=== PATIENT | female | born 1965 | race Caucasian/White ===

== ENCOUNTER → 2020-01-22 13:56 | Outpatient (BNVA) | payer BC, SELFPAY | PROVIDERS: Visit Provider Advanced Practice Midwife | DX: Z76.89 Persons encountering health services in other specified circumstances (principal) ==

== ENCOUNTER 2022-03-13 10:06 | Outpatient (REF) | payer OTHER, SELFPAY ==
[2022-03-13 14:14] LABS: CT PCR NOT DETECTED (Not Detect.); NG PCR NOT DETECTED (Not Detect.)
[2022-03-14 11:23] LABS: BV Int Neg Control Negative (Negative); BV Int Pos Control Positive (Positive)
[2022-03-17 16:30] LABS: HPV mRNA E6/E7 rflx Not Detected (Not Detected)
== END 2022-03-13 10:07 | disposition home or self-care (01) ==
LOC: HO.LNP 10:06
PROVIDERS: Visit Provider Advanced Practice Midwife
DX: Z01.419 Encounter for gynecological examination (general) (routine) without abnormal findings (principal); Z11.3 Encounter for screening for infections with a predominantly sexual mode of transmission
CPT/HCPCS: 0353U; 87480; 87510; 87624; 87660; 88142

== ENCOUNTER 2023-05-27 16:11 | Outpatient (REF) | payer OTHER, SELFPAY | END 2023-05-27 16:12 | disposition home or self-care (01) | LOC: HO.MAMMO 16:11 | PROVIDERS: PCP Internal Medicine; Visit Provider Internal Medicine | DX: Z12.31 Encounter for screening mammogram for malignant neoplasm of breast (principal) | CPT/HCPCS: 77063; 77067 ==

== ENCOUNTER → 2023-05-27 16:30 | Outpatient (BNV) | payer OTHER, SELFPAY | PROVIDERS: PCP Internal Medicine; Visit Provider Radiology Diagnostic Radiology | DX: Z12.31 Encounter for screening mammogram for malignant neoplasm of breast (principal) | CPT/HCPCS: 77063; 77067 ==

== ENCOUNTER 2023-12-30 09:57 | Outpatient (REF) | payer OTHER, SELFPAY | END 2023-12-30 09:58 | disposition home or self-care (01) | LOC: HO.LAB 09:57 | PROVIDERS: PCP Internal Medicine; Visit Provider Advanced Practice Midwife | DX: Z13.89 Encounter for screening for other disorder (principal) ==

== ENCOUNTER 2023-12-30 09:57 | Outpatient (AMB) | payer OTHER, SELFPAY ==
[2023-12-30 10:01] VITALS: BP 118/78; BMI 27.4
--- NOTE | 2023-12-30 10:01 | MHC.OFFVIS ---
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 She is not having any ux specialist concerns her last period was when she was 53 years old she has not been sexually active for quite a while though she was since her last exam so she is open to getting checked for infection with the exam but declines blood work. She is in good health currently she is unemployed cut thing on employment as she was laid off from her last job but she is looking for another. 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 Tool for children live with her she has no concerns her last Pap smear was normal and she has no history of abnormals and her mammogram was negative and she getting another 1 next year. [facility] Medical History Colon polyp Hyperlipemia Surgical History Hx of section History of removal of cyst Hx of tubal ligation Family History Mother High cholesterol Arthritis HTN (hypertension) CVD (cardiovascular disease) Social History Alcohol intake: never Gender identity: Female Female Reproductive History Menstrual Age of Menarche: 16 Duration of menses: 3-5 days control method: permanent sterilization Total pregnancies: 4 Full term: 3 Date of last pap smear: 03/13/22 (neg.2017,WNL) Date of Mammogram: 05/27/23 (negative) Physical Exam Vital Signs: Last Vital Signs BP 118/78 12/30/23 10:01 BMI result Body Mass Index 27.4 Const General: healthy appearing, comfortable, no acute distress, well developed and alert Nutritional Appearance: average body habitus Orientation/consciousness: patient oriented x3 Limitations: no limitations HEENT Head: Yes normocephalic Neck Neck: Yes normal visual inspection Chest Chest palpation & inspection: normal inspection of the chest Breast/axilla inspection: normal inspection of the breasts and normal inspection of the axillae Breast/axilla palpation: normal palpation of the breasts and normal palpation of the axillae Resp Effort & Inspection: normal respiratory effort GI Inspection: Yes normal to inspection, No Abdominal wall edema and No distended Palpation (GI): Soft to palpation and nontender Other: Normal external exam vagina is moist with atrophic changes no abnormal discharge cervix multiparous pink smooth mobile nontender uterus small midposition nontender adnexa not enlarged very good tone Kegel. General: Yes bladder normal to palpation External Female Exam: normal external appearance and normal appearance of the urethra Speculum Exam - Vagina: normal appearance of the vagina, normal palpation and normal vaginal discharge Speculum Exam - Cervix: normal appearance of the cervix, normal palpation and nontender Bimanual exam- vagina & uterus: normal bimanual exam, normal palpation, uterine size normal, bladder normal to palpation, consistency normal, normal palpation, uterine mobility normal, uterine shape normal, No Cervical tenderness present, non-tender and no cervical motion tenderness Bimanual Exam- Adnexa, other: normal adnexae, no masses, normal and No adnexal tenderness Neuro General: patient oriented x3 Results Reviewed Results Reviewed: Name: Joanna Jacobson I Age/Sex: 56/F Attending: Ofelia Ch CNM : 1965 Submitted by: Ofelia Ch CNM Copies to: MR #: [id number] Status: DEP REF Collected: 03/13/22 Location: [facility] Received: 03/13/22 Interpretation Satisfactory for evaluation. Negative for intraepithelial lesion or malignancy. HPV mRNA E6/E7: NOT DETECTED This assay detects E6/E7 viral messenger RNA (mRNA) from 14 high-risk HPV types (16, 18, 31, 33, 35, 39, 45, 51, 52, 56, 58, 59, 66, 68) HPV testing performed by [facility] [employer], [place], [place]. See reference laboratory portion of the EMR for entire report. Clinical Information LMP: No menses Previous PAP test: 09/24/16, WNL Material Received ThinPrep-Cervical Electronically Signed By: Jessica Brooke 03/22/22 1154 The Pap Test is a screening procedure with the inherent possibility of both false negative and false positive results. Results should be interpreted in the context of historic and current clinical findings. Reliability of the Pap Test is enhanced by performing the test on a regular repetitive basis. Patient: Joanna Jacobson I Age/Sex: 56/F MR#: [id number] Page 1 of 1 [facility] [address] [place] [address] Mammography Report Signed Patient: Joanna Jacobson I MR#: [id number] : 1965 Acct:[id number] Age/Sex: 57 / F ADM Date: 05/27/23 Loc: MAMMO Attending Dr: Batsheva Scott MD Ordering Physician: Physician,Unknown Results: 1Negative Date of Service: 05/27/23 Follow Up: 1 Year From Original Mammogram Procedure(s): MM tomosynthesis screening BI Accession Number(s): [id number] cc: Physician,Unknown ; Batsheva Scott MD~ EXAMINATION: MM SCREENING DIGITAL BREAST TOMOSYNTHESIS, BILATERAL CLINICAL INFORMATION: Screening. Asymptomatic. COMPARISON: Mammography: This study is compared with prior exams dating back to 2019. TECHNIQUE: Digital breast tomosynthesis is performed in both the craniocaudal and mediolateral oblique views along with computer-aided detection (CAD). Synthesized 2D images are generated from the tomosynthesis. FINDINGS: There are scattered areas of fibroglandular density (ACR BI-RADS breast composition Category b). There are no significant masses, abnormal calcifications, or other abnormalities. MM/MM tomosynthesis screening BI IMPRESSION: No mammographic evidence of malignancy. ASSESSMENT: BI-RADS BI-RADS 1 - Negative RECOMMENDATION: Routine annual mammography screening. 1 year F/U This examination should not preclude the clinical evaluation of a suspicious palpable abnormality. This patient's information was entered into a reminder system with a target due date for their next mammogram. Dictated By: Brittany Haider MD Signed By: <Electronically signed by Brittany Haider MD in OV> 06/22/23 0600 DD/ 1631 TD/TT: Lehr Loader: Assessment & Plan Assessment & Plan (1) Screen for sexually transmitted diseases: Code(s): Z11.3 - Encounter for screening for infections with a predominantly sexual mode of transmission Category: Medical (2) Breast cancer screening: Code(s): Z12.39 - Encounter for other screening for malignant neoplasm of breast Category: Medical (3) Cervical cancer screening: Comment: 03/13/2022 Pap is negative with negative HPV. Code(s): Z12.4 - Encounter for screening for malignant neoplasm of cervix Category: Medical (4) Encounter for well woman exam with routine gynecological exam: Code(s): Z01.419 - Encounter for gynecological examination (general) (routine) without abnormal findings Category: Medical Plan -----Discussed in this visit the following: healthy balanced diet, regular and consistent exercise, getting recommended health screens, doing the best she can for her particular health concerns, kegel exercises, pap smear screening and followup recommendations, mammography screening and SBE, normal changes in cycles in her life stage--- . Reviewed everything in HPI she is up-to-date on all her screening she thinks she eats well and gets enough calcium in her diet. She is physically active. She is doing well reviewed future menopausal changes to expect especially with intimacy should it occur she has no need for any other screens at this time we will see her next year I told her her next Pap smear would in 4 years. She will be having her next mammogram 1 year from last 1 so next year. Orders: Orders Bacterial Vaginosis Panel Today N89.8 - Other specified noninflammatory disorders of vagina CT NG by PCR Today N89.8 - Other specified noninflammatory disorders of vagina Coding Level of Care Code Est Pt Prev Care 40-64y(42769) Diagnoses Screen for sexually transmitted diseases Z11.3 Breast cancer screening Z12.39 Cervical cancer screening Z12.4 Encounter for well woman exam with routine gynecological exam Z01.419
== END 2023-12-30 10:52 | disposition home or self-care (01) ==
LOC: HO.HWSM 09:57
PROVIDERS: PCP Internal Medicine; Visit Provider Advanced Practice Midwife
DX: Z01.419 Encounter for gynecological examination (general) (routine) without abnormal findings (principal)
CPT/HCPCS: 99396

== ENCOUNTER 2023-12-31 18:24 | Outpatient (REF) | payer OTHER, SELFPAY ==
[2024-01-01 01:57] LABS: CT PCR NOT DETECTED (Not Detect.); NG PCR NOT DETECTED (Not Detect.)
[2024-01-01 16:03] LABS: Bacterial Vaginosis PCR NEGATIVE (Negative); Candida Group PCR NOT DETECTED (Not Detect); Candida glab krusei PCR NOT DETECTED (Not Detect); Trichomonas vaginalis PCR NOT DETECTED (Not Detect)
== END 2023-12-31 18:25 | disposition home or self-care (01) ==
LOC: HO.LNP 18:24
PROVIDERS: Visit Provider Advanced Practice Midwife
DX: N89.8 Other specified noninflammatory disorders of vagina (principal)
CPT/HCPCS: 0352U; 87491; 87591

== ENCOUNTER 2024-07-04 15:33 | Outpatient (REF) | payer SELFPAY ==
--- OUTSIDE RECORDS SUMMARY | 2024-07-04 16:41 | XMS_ITS | Clinical Summary ---
Author Organization 175 [facility] Address [address] [place] [address] Phone Care Team Providers Care Director Nursing Service Name Role Phone Myles Stahl MD Primary Care Provider [phone] Allergies No known active allergies Medications cholecalciferol (VITAMIN D-3) 25 mcg (1,000 unit) tablet Take by mouth 1 (one) time each day. Active ciclopirox (PENLAC) 8 % solution Apply 1 Application topically at bedtime. for 90 days Active silver sulfADIAZINE (Silvadene) 1 % cream Apply topically 1 (one) time each day. 50 g 5 04/10/19 26 Active clobetasoL 0.05 % external spray Apply 1 spray topically 2 (two) times a day. 59 mL 5 Active atorvastatin (LIPITOR) 10 mg tablet Take 1 tablet (10 mg total) by mouth 1 (one) time each day. 90 each 5 Active Active Problems Problem Noted Date Diagnosed Date Migraines 08/28/2019 Encounters Date Type Department Care Team Description 06/01/2024 8:15 AM EDT Office Visit Orthopedic [facility] [address] [address] Sammy Avendano DPM Dermatophytosis of nail (Primary Dx) 04/26/2024 9:30 AM EST Office Visit [facility] [address] [address] Avendano, Christopher M, DPM Dermatophytosis of nail (Primary Dx); Tinea pedis of both feet; Ingrowing nail 04/14/2024 8:45 AM EST Office Visit Adult Medicine [address] [phone] Myles Stahl MD Hypercholesterolemia (Primary Dx); Scalp lesion; Onychomycosis 04/10/2024 9:30 AM EST Office Visit Orthopedic Surgery [address] [address] Sammy Avendano, DPM Dermatophytosis of nail (Primary Dx); Ingrowing nail from Last 3 Months Immunizations Name Administration Dates Next Due Pfizer SARS-CoV-2 COVID-19, mRNA, LNP-S, preservative free 01/24/2021,01/02/2021 Tdap Tetanus diptheria acell ular pertussis (Boostrix; Adacel) 7yo and older 08/28/2019 Surgical History Surgery Date Site/Laterality Comments SECTION 1996 PROCEDURE: HISTORICAL Medical History Medical History Date Comments Hyperlipidemia DX:Hyperlipidemi a Migraines DX:Migraines Family History Medical History Relation Name Comments Other: hyperlipidemia Mother Stroke Sister Blindness Neg Hx Cataracts Neg Hx Glaucoma Neg Hx Macular degeneration Neg Hx Strabismus Neg Hx Relation Name Status Comments Mother Sister Social History Tobacco Use Types Packs/Day Years Used Date Smoking Tobacco: Never Smokeless Tobacco: Never Alcohol Use Standard Drinks/Week Comments No 0 (1 standard drink = 0.6 oz pur e alcohol) Comments Unknown Sex and Gender Information Value Date Recorded Sex Assigned at Not on file Legal Sex Female 4:34 AM EST Gender Identity Not on file Sexual Orientation Not on file Obstetrics History Last Filed Vital Signs Vital Sign Reading Time Taken Comments Blood Pressure 136/70 04/14/2024 8:39 AM EST Pulse 61 04/14/2024 8:39 AM EST Temperature 36.6 ??C (97.9 ??F) 04/14/2024 8:39 AM ES T Respiratory Rate 12 04/14/2024 8:39 AM EST Oxygen Saturation - - Inhaled Oxygen Concentration - - Weight 65.8 kg (145 lb) 06/01/2024 8:13 AM EDT Height 160 cm (5' 2.99 ) 06/01/2024 8:13 AM EDT Body Mass Index 25.69 06/01/2024 8:13 AM EDT Plan of Treatment Upcoming Encounters Date Type Department Care Team (Late st Contact Info) Description 08/22/2024 11:00 AM EDT Office Visit Adult Medicine [facility] [address] [place] [address] Myles Stahl MD [address] [place] [address] 10/02/2024 8:30 AM EDT Office Visit Orthopedic Surgery - [place] [address] [phone] Sammy Avendano, DPM [address] [address] Health Maintenance Due Date Last Done Comments Hepatitis B Vaccines (1 of 3 - 19+ 3-dose series) 1985 Cervical Cancer Screening: Pap Smear 10/08/1987 Pneumococcal Vaccine: 50+ Years (1 of 1 - PCV) 2016 Zoster Vaccines (1 of 2) 2016 Depression Screening 02/08/2022 HIV Screening 02/08/2022 Hepatitis C Screening 02/08/2022 Social Influencers of Health Screening 02/08/2022 COVID-19 Vaccine ( season) 2023 01/24/2021, 01/02/2021 Breast Cancer Screening 04/27/2024 04/27/19 23, 04/23/2020, 11/14/2018, Additional history exists Influenza Vaccine (Season Ended) 2024 Colorectal Cancer Screening: Colonoscopy 03/01/2028 03/01/2018 Cholesterol Screening (Lipid Panel) 04/14/2029 04/14/2024, 01/14/2024, 02/18/2022 DTaP,Tdap,and Td Vaccines (3 - Td or Tdap) 08/27/2029 08/28/2019, 12/11/2016 HIB Vaccines Aged Out No longer eligi ble based on patient's age to complete this topic HPV Vaccines Aged Out No longer eligi ble based on patient's age to complete this topic Hepatitis A Vaccines Aged Out No long er eligible based on patient's age to complete this topic IPV Vaccines Aged Out No longer eligi ble based on patient's age to complete this topic MMR Vaccines Aged Out No longer eligi ble based on patient's age to complete this topic Meningococcal ACWY Vaccine Aged Out N o longer eligible based on patient's age to complete this topic Meningococcal B Vaccine Aged Out No l onger eligible based on patient's age to complete this topic Pneumococcal Vaccine: Pediatrics (0 to 5 Years) and At-Risk Patients (6 to 64 Years) Aged Out No longer eligible based on patient's age to complete this topic RSV Immunization Patients Under 20 months Aged Out No longer eligible based on patient's age to complete this topic Varicella Vaccines Aged Out No longer eligible based on patient's age to complete this topic Procedures Procedure Name Priority Date/Time Associated Diagnosis Comments LIPID PANEL WITH REFLEX TO DIRECT LDL Routine 04/14/2024 10:27 AM EST Hypercholesterolemi a [facility] SCREENING DIGITAL Routine 04/27/2022 2:51 PM EST Encounter for screening mammogram for malignant neoplasm of breast COLONOSCOPY Routine 03/01/2018 from Last 3 Months or Most Recently Relevant to Health Maintenance Results * (ABNORMAL) Lipid panel with reflex to direct LDL (04/14/2024 10:27 AM EST) Cholesterol 299(H) 0 - 200 mg/dL LAB CHEMISTRY METHOD 04/14/2024 12:52 PM EST [facility] Triglycerides 54 0 - 150 mg/dL LAB CHEMISTRY METHOD 04/14/2024 12:52 PM EST [facility] HDL 65 >=40 mg/dL LAB CHEMISTRY METHOD 04/14/2024 12:[address] [facility] LDL Calculated 223(H) 0 - 100 mg/dL LAB CHEMISTRY METHOD 04/14/2024 12:[address] [facility] VLDL Cholesterol Ulises 10.8 mg/dL LAB CHEMISTRY METHOD 04/14/2024 12:52 PM EST [facility] Non HDL Chol. (LDL+VLDL) 234(H) <145 mg/dL LAB CHEMISTRY METHOD 04/14/2024 12:52 PM EST [facility] Chol/HDL Ratio 4.6(H) 0.0 - 4.4 LAB CHEMISTRY METHOD 04/14/2024 12:52 PM EST [facility] Blood Venous blood specimen / Unknown Venipuncture / Unknown 04/14/2024 10:27 AM EST 04/14/2024 10:27 AM EST us Myles Stahl MD LAB BLOOD ORDERABLES Final Result [facility] [address] [place] [address], * DARREN SCREENING DIGITAL (04/27/2022 2:51 PM EST) Anatomical Region Laterality Modality Mammography 04/27/2022 7:49 AM EST Narrative 04/27/2022 2:51 PM [facility] Diagnostic Imaging Department [address] [place] [address] Patient: ??JACOBSON,MORIS ?/Age/Sex: 1965 - 56 - F Unit#: ??[id number] ? Location/Status: ??SPDIMAM/REG CLI ? Mnemonic/Ordering Site: ??DIGSC/SPMAM Ordering Physician: ??MYLES STAHL MD Darren Screening Digital - 04/27/22827 INDICATION: SCREENING COMPARISON: [facility] and outside mammograms dating back to 11/09/2011 TECHNIQUE: CC and MLO views of the breasts were obtained, using full field digital mammography with 3D tomosynthesis views in the MLO projection. Computer aided detection with the Liibook 7.2-H was employed. FINDINGS: The breasts contain scattered fibroglandular tissues. No suspicious masses, suspicious microcalcifications, or areas of architectural distortion are identified. ??There are no secondary signs of breast malignancy. IMPRESSION: ??No specific mammographic evidence of breast malignancy. Lack of an imaging correlate should not deter or delay biopsy of a clinically significant palpable finding. BI-RADS ??- Category 1: Negative 3341F, 7025F Annual screening mammography is recommended. Patient entered into a reminder system with a target date for the next mammogram. (G0202 / [id number]) , ??[id number] Dictating Physician: ??TOBIAS BERRIOS MD Electronically Signed by: ??TOBIAS BERRIOS MD Dic Date/Time: ??04/27/22 1450 Sign date/Time: ??04/27/22 1451 Procedure Note Tobias Berrios MD - 04/02/2023 [facility] Diagnostic Imaging Department [address] [place] [address] Patient: MORIS JACOBSON /Age/Sex: 1965 - 56 - F Unit#: [id number] Location/Status: [facility] CLI Mnemonic[facility]ician: MYLES STAHL MD Darren Screening Digital - 04/27/22 - 827 INDICATION: SCREENING COMPARISON: [facility] and outside mammograms dating back to 11/09/2011 TECHNIQUE: CC and MLO views of the breasts were obtained, using full field digital mammography with 3D tomosynthesis views in the MLO projection. Computer aided detection with the Liibook 7.2-H was employed. FINDINGS: The breasts contain scattered fibroglandular tissues. No suspicious masses, suspicious microcalcifications, or areas ofarchitectural distortion are identified. There are no secondary signs of breastmalignancy. IMPRESSION: No specific mammographic evidence of breast malignancy. Lack of an imaging correlate should not deter or delay biopsy of aclinically significant palpable finding. BI-RADS - Category 1: Negative 3341F, 7025F Annual screening mammography is recommended. Patient entered into a reminder system with a target date for the next mammogram. [id number] / [id number]) , [id number] Dictating Physician: TOBIAS BERRIOS MD Electronically Signed by: TOBIAS BERRIOS MD Dic Date/Time: 04/27/22 1450 Sign date/Time: 04/27/22 1451 Myles Stahl MD IMG BI PROCEDURES Final Res ult * Colonoscopy (03/01/2018) Colonoscopy abstracted, no interpretation Anatomical Region Laterality Modality Other Historical Provider HEALTH MAINTENANCE Final Result from Last 3 Months or Most Recently Relevant to Health Maintenance Insurance [facility] Care Teams Director Nursing Service Relationship Specialty Start Date End Date Myles Stahl MD [address] [place] [address] PCP - General Internal Medicine 12/08/21
== END 2024-07-04 15:34 | disposition home or self-care (01) ==
LOC: HO.MAMMO 15:33
PROVIDERS: PCP Internal Medicine; Visit Provider Internal Medicine
DX: Z12.31 Encounter for screening mammogram for malignant neoplasm of breast (principal)
CPT/HCPCS: 77063; 77067

== ENCOUNTER → 2024-07-04 15:45 | Outpatient (BNV) | payer SELFPAY | PROVIDERS: PCP Internal Medicine; Visit Provider Internal Medicine | DX: Z12.31 Encounter for screening mammogram for malignant neoplasm of breast (principal) | CPT/HCPCS: 77063; 77067 ==